=== PATIENT | female | born 1985 | race Caucasian/White ===

== ENCOUNTER → 2020-05-10 | Outpatient (CLI) | payer OTHER ==
[~2020-05-10] MED LIST: DULOXETINE HCL60 MG PO; ETONOGESTREL-E1 EACH VAG; LORCET 5-325 M1 EACH PO; PANTOPRAZOLE SO40 M1 PO; VITAMIN B122500 MC1 PO; VITAMIN D325 MC3 PO
== END ==
LOC: M.LAB 16:38
PROVIDERS: ATTEND Surgery
DX: Z01.812 Encounter for preprocedural laboratory examination (principal); Z11.59 Encounter for screening for other viral diseases

== ENCOUNTER → 2020-05-16 | Day surgery (SDC) | payer OTHER ==
[2020-05-16 06:26] LABS: HEMATOCRIT 40.9 % (37.0-47.0); HEMOGLOBIN 13.8 gm/dL (12.0-15.0)
[2020-05-16 06:35] LABS: CALCIUM 9.7 mg/dL (8.5-10.1); POTASSIUM 3.9 mmol/L (3.5-5.1)
[2020-05-16 06:40] LABS: ALBUMIN 3.9 g/dL (3.4-5.0); TOTAL BILIRUBIN 0.3 mg/dL (<0.1-1.0); TOTAL PROTEIN 8.4 g/dL (6.4-8.2)
--- NOTE | 2020-05-16 12:39 | OP ---
[facility] [address] [place] [address] OPERATIVE REPORT Name: DUSTY JADE Room: [facility]#: [id number] Admission: 05/16/20 Attend Phys: Daryl Eugene Discharge: Date of : 89 Report #: [id number] THIS REPORT FOR: //name// cc: Dave Silva Robin L. FNP THIS REPORT FOR: //name// CC: Daryl Silva DATE OF SERVICE: 05/16/2020 PREOPERATIVE DIAGNOSIS: Symptomatic cholelithiasis. POSTOPERATIVE DIAGNOSIS: Symptomatic cholelithiasis. OPERATION: Laparoscopic cholecystectomy with cholangiogram. SURGEON: Daryl Eugene MD ANESTHESIA: General. ESTIMATED BLOOD LOSS: Minimal. SPECIMEN: Gallbladder. DESCRIPTION OF PROCEDURE: After informed consent was obtained, the patient was brought to the operating room and placed supine. SCDs were placed and working, preoperative antibiotics were administered, general anesthesia was induced. The abdomen was prepped and draped in the usual sterile fashion. A 10-mm incision was made above the umbilicus. Fascia was incised and a trocar was placed. Pneumoperitoneum was established. Three right upper quadrant 5 mm ports were placed. The gallbladder was grasped and retracted cephalad. Infundibulum was grasped and retracted laterally. I dissected out the cystic duct and cystic artery. The cystic duct was cannulated with a cholangiogram catheter. Cholangiogram was performed. This demonstrated filling of the cystic duct, common bile duct, common hepatic duct, bifurcation of the hepatics, smooth flow into the duodenum with no filling defects. This was normal. The cystic duct and artery were clipped and ligated leaving a clip and a PDS Endoloop on the remaining duct and a clip on the remaining artery. Gallbladder was then taken off the liver bed with electrocautery. It was placed into an Endopouch and removed. The fascia was then closed with a [id number] 0 Vicryl. Skin was closed with 4-0 Monocryl. Incisions were [place] [address] OPERATIVE REPORT Name: DUSTY JADE Room: [facility]#: [id number] Admission: 05/16/20 Attend Phys: Daryl Eugene Discharge: Date of : 89 Report #: [id number] COMPLICATIONS: None. DISPOSITION: The patient was taken to recovery in satisfactory condition. <ELECTRONICALLY SIGNED> By: Daryl Eugene MD 05/16/20 1239 1213 1218Daryl Eugene MD /nt
--- NOTE | 2020-05-17 17:06 | PATH ---
[address] [address] PATHOLOGY RPT PROCEDURE Name: DUSTY BALL Room: [facility]#: [id number] Admission: 05/16/20 Date of : 89 Discharge: Report #: [id number] Path Case #: [id number] [facility] Accession Number: [id number] . 01 Material submitted: . gallbladder - GALLBLADDER AND CONTENTS . 01 Clinical history: . Calculous of gallbladder . 02 Diagnosis: Gallbladder and contents: - Chronic cholecystitis and cholelithiasis with benign lymph node. (BOLIVAR/db; 05/17/2020) LBQ 05/17/2020 1547 Local . 02 Comment: . . 02 Electronically signed: . Fredy Durham MD, Pathologist NPI- [id number] . 01 Gross description: . The specimen is received in formalin, labeled "Dusty Ball", "gallbladder and contents". Received is an intact gallbladder measuring 13.9 x 3.8 x 2.5 cm. The external surface is smooth, shiny and pale maloney-pale pink-holm. Opening the gallbladder reveals a green, velvety, bile-stained mucosa with a possible lymph node identified. The gallbladder wall measures 0.1 cm to 0.2 cm in thickness. 2 calculi are identified and measure 2.5 and 3.5 cm. Product Safety Technical Assistant sections are submitted in cassette A1.([facility]; 05/16/2020) PRATIK/JEFFRY 05/17/2020 1628 Local . 02 Pathologist provided ICD-10: K80.10 . 02 CPT . 022443 Specimen Comment: A courtesy copy of this report has been sent to [phone], [phone] Specimen Comment: [id number] Specimen Comment: Report sent to / DR GALINDO Performed at: [address] [id number] MD Matias Saleh MD Phone: [phone] Performed at: [address] [place] [address] PATHOLOGY RPT PROCEDURE Name: DUSTY BALL [id number] Admission: 05/16/20 Date of : 89 Discharge: Report #: [id number] Path Case #: [id number] [address] [place], [place] [id number] MD Fredy Durham MD Phone: [phone]
== END | disposition home or self-care (01) ==
LOC: M.SUR 06:07
PROVIDERS: ATTEND Surgery
DX: K80.10 Calculus of gallbladder with chronic cholecystitis without obstruction (principal); K21.0 Gastro-esophageal reflux disease with esophagitis; F41.9 Anxiety disorder, unspecified; J45.909 Unspecified asthma, uncomplicated; F32.9 Major depressive disorder, single episode, unspecified; Z87.891 Personal history of nicotine dependence; Z79.899 Other long term (current) drug therapy; Z98.890 Other specified postprocedural states